=== PATIENT | female | born 1995 | race Two or more races ===

== ENCOUNTER 2019-07-29 23:31 | Emergency (ER) | payer BC, OTHER ==
[2019-07-29 23:42] VITALS: BP 142/87
[2019-07-29] MEDS ORDERED: DEXAMETHASONE SOD PHOS INJ 10 MG/1 ML VIAL IM ONE (23:52)
[2019-07-29] MEDS ORDERED: PENICILLIN G BENZATHINE 1.2 MILLION UNIT/2 ML DISP.SYRIN IM ONE (23:52)
[2019-07-29] MEDS ORDERED: IBUPROFEN 800 MG TABLET PO ONE (23:53)
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
== END 2019-07-30 00:19 | disposition home or self-care (01) ==
LOC: ER 23:31
DX: J02.9 Acute pharyngitis, unspecified (principal); R59.0 Localized enlarged lymph nodes; M79.10 Myalgia, unspecified site; R51 Headache; R07.9 Chest pain, unspecified
CPT/HCPCS: 99282; 96372; J0561; J1100